=== PATIENT | female | born 1965 | race African-American/Black ===

== ENCOUNTER 2020-04-19 22:49 | Emergency (ER) | payer SELFPAY ==
[2020-04-19 23:10] VITALS: BP 135/89; PULSE 87; TEMP 98; BMI 36.6
--- NOTE | 2020-04-20 | PDOC ---
History of Present Illness - General Chief Complaint: Pain, Acute Stated Complaint: FELL AT WORK, PAIN TO RIGHT KNEE Time Seen by Provider: 04/19/20 22:58 - History of Present Illness Initial Comments: This 54-year-old woman with a history of seasonal allergies but no significant past medical history presents with right knee injury. 2 days ago, while patient was working at [employer], she tripped over wheelchair of a customer striking her right knee against the floor. Patient was able to continue working but since then, she has had pain in the knee, especially with prolonged standing; she also notes swelling in the knee. No previous history of right knee pain or swelling. No other injury sustained. The patient did not strike her head or neck. No LOC. Patient has not taken any analgesics for the pain. She has placed intermittent warm compresses to the area of injury. No daily medications No known allergies Non-smoker; no history of daily alcohol or other recreational drug use Past History - Medical History Allergies/Adverse Reactions: Allergies Allergy/AdvReac Type Severity Reaction Status Date / Time No Known Allergies Allergy Verified 04/19/20 22:54 Home Medications: Ambulatory Orders Diclofenac Sodium 75 mg PO BID PRN #20 tablet. 04/20/20 COPD: No - Reproductive History Is Patient Now?: No - Psycho-Social/Smoking History Smoking History: Never smoked Have you smoked in the past 12 months: No Information on smoking cessation initiated: No - Substance Abuse Hx (Audit-C & DAST Scrn) How often the patient has a drink containing alcohol: Never Score: In Men: 4 or > Positive; In Women: 3 or > Positive: 0 Screen Result (Pos requires Nsg. Audit-10AR): Negative Review of Systems - Review of Systems Able to Perform ROS?: Yes Comments:: 12 point review of systems is negative except for what is noted in the history of present illness *Physical Exam - Vital Signs Last Vital Signs Temp Pulse Resp BP Pulse Ox 98 F 87 16 135/89 98 04/19/20 23:04 04/19/20 23:04 04/19/20 23:04 04/19/20 23:04 04/19/20 23:04 - Physical Exam GENERAL: Adult female, alert and oriented x3, no acute distress HEAD: Normal with no signs of trauma. EYES: PERRLA, EOMI, sclera anicteric, conjunctiva clear. ENT: Ears normal, nares patent, oropharynx clear without exudates. Dry mucous membranes. NECK: Normal range of motion, supple without lymphadenopathy, JVD, or masses. EXTREMITIES: Right lower extremitymild right knee edema with tenderness of proximal tibial surface; pain reproduced with flexion and extension of the knee Mild pain on medial surface with valgus stressing; no ligamentous instability No patellar tenderness or instability; no deformity or ecchymosis noted Remainder of the extremity exam is normal NEUROLOGICAL: Cranial nerves II through XII grossly intact. Normal speech. No focal neurological deficits. ED Treatment Course - RADIOLOGY Radiology Studies Ordered: Category Date Time Status KNEE 2 POS-RIGHT [RAD] Stat Radiology 04/19/20 22:58 Taken ED Progress Note - Progress Note Progress Note: This otherwise healthy 54-year-old woman presents with injury to her right knee sustained at work when she tripped and fell, striking anterior portion of her right knee. No other injury sustained. She has had swelling and pain in the knee, especially with prolonged standing since the injury. No previous history of right knee pain or swelling. Exam as noted 2 position right knee x-ray performed: Preliminary interpretation by rubén evidence of fracture or dislocation Knee immobilizer placed on the right knee. Patient has no history of peptic ulcer disease, gastritis or other gastrointestinal issues. She has no history of kidney disease. Patient deferred Toradol IM now. Will transmit prescription for diclofenac 75 mg twice a day as needed for pain (take with food). The patient does not have an orthopedist. Kathy Pereira and Collin are leasing consultant for service referrals. Referral information for them given to the patient. She should call the office in the morning to arrange for follow-up within the next few days. The patient is scheduled to work tomorrow and then not to work until April 23 Work documentation provided for the patient to rest tomorrow not to work until April 23. Meanwhile, the patient should continue to ice and elevate the right knee, especially over the next 24 hours. She should use either a knee immobilizer or Royce wrap on the right knee during the day until seen by orthopedist. Discharge - Discharge Information Problems reviewed: Yes Clinical Impression/Diagnosis: Knee sprain Qualifiers: Encounter type: initial encounter Involved ligament of knee: unspecified ligament Laterality: right Qualified Code(s): S83.91XA - Sprain of unspecified site of right knee, initial encounter Condition: Stable Disposition: HOME - Additional Discharge Information Prescriptions: Diclofenac Sodium 75 mg PO BID PRN #20 tablet.dr KUMARI Reason: Pain - Follow up/Referral - Patient Discharge Instructions Patient Printed Discharge Instructions: DI for Knee Sprain Additional Instructions: Ice/elevation of right knee is much as possible for the next 48 hours Knee immobilizer or royce wrap to knee during the day until seen by orthopedist Voltaren 75 mg twice a day as needed for pain; take with food Call Drs. Pereira/Collin (orthopedist) in AM and arrange follow-up within the next few days Return to ER if you have persistent severe pain/swelling - Post Discharge Activity Work/Back to School Note: Back to Work
== END 2020-04-20 00:20 | disposition home or self-care (01) ==
LOC: FER 22:49
DX: S83.91XA Sprain of unspecified site of right knee, initial encounter (principal)
CPT/HCPCS: 73560-TC-RT-FY; 99283-25